=== PATIENT | female | born 1970 | race Caucasian/White ===

== ENCOUNTER 2017-12-15 07:32 | Observation (INO) | payer OTHER, SELFPAY ==
[2017-12-15 08:41] LABS: #Basophils 0.1 thou/uL (0.0-0.2); #Eosinphils 0.1 thou/uL (0.0-0.7); #Lymphocytes 0.9 thou/uL (1.20-3.40); #Monocytes 0.3 thou/uL (0.11-0.59); #Neutrophils 2.9 thou/uL (1.40-6.50); %Basophils 1.4 % (0.0-1.0); %Eosinophils 2.2 % (0.0-10.0); %Lymphocytes 21.6 % (21.0-51.0); %Monocytes 7.5 % (0.0-10.0); %Neutrophils 67.3 % (42.0-75.0); Hemoglobin 12.4 g/dL (12.0-16.0); Mean Corpuscular HGB CONC 32.3 g/dL (32.0-36.0); Mean Corpuscular Hemoglobin 35.6 pg (27.0-31.0); Mean Platelet Volume 7.2 fL (7.4-10.4); Platelet Count 174 thou/uL (130-400); RBC Distribution Width 13.2 % (11.5-14.5); Red Blood Cell (RBC) Count 3.49 mill/uL (4.20-5.40); White Blood Cell (WBC) Count 4.2 thou/uL (4.8-10.8)
[2017-12-15 08:48] LABS: Prothrombin Time 13.1 SEC (12.0-14.7)
[2017-12-15 09:00] LABS: ALT (SGPT) 69 U/L (8-55); AST (SGOT) 65 U/L (5-34); Albumin 4.3 g/dL (3.5-5.0); Alkaline Phosphatase 59 U/L (40-150); Anion Gap 17 mmol/L (10-20); BUN (Urea Nitrogen) 12 mg/dL (7.0-18.7); Bilirubin, Total 0.5 mg/dL (0.2-1.2); Calc. Creatinine Clearance 0 mL/min (70-130); Carbon Dioxide 24 mmol/L (22-29); Chloride 105 mmol/L (98-107); Estimated GFR-MDRD Greater than 90; Globulin 3.3 g/dL (2.4-3.5); Glucose 80 mg/dL (70-105); Magnesium 1.9 mg/dL (1.6-2.6); Potassium 3.7 mmol/L (3.5-5.1); Protein, Total 7.6 g/dL (6.0-8.3); Sodium 142 mmol/L (136-145)
[2017-12-15 09:04] LABS: CKMB 0.7 ng/mL (0-6.6)
--- NOTE | 2017-12-15 09:04 | CT ---
CT BRAIN NONCONTRAST: HISTORY: A 47-year-old female with posttraumatic headache. FINDINGS: There is no midline shift or any other mass effect. There is no evidence of acute intracranial hemor rhage, large cortical infarct, obstructive hydrocephalus, or extraaxial fluid collection. The calvar ium is intact. IMPRESSION: No acute intracranial findings. isabel [] POS: [facility]
[2017-12-15 09:15] LABS: MDiff Complete? YES; Macrocytosis SLIGHT = 6-15 cells (100X) (0-5/hpf)
--- NOTE | 2017-12-15 09:17 | CT ---
CT CERVICAL SPINE WITHOUT CONTRAST: HISTORY: Trauma. Fall. Injury. COMPARISON: None. FINDINGS: The occipital condyles are intact. The odontoid process is intact. Moderate to severe left-sided facet arthropathy at C4-C5 and moderate on the right at C4-C5. No acut e fracture or malalignment of the cervical spine. The thyroid is asymmetric with the right lobe smaller than the left. The paraspinal soft tissues are unremarkable. IMPRESSION: No acute fracture or malalignment of the cervical spine. POS: [facility]
--- NOTE | 2017-12-15 09:18 | RAD ---
PORTABLE AP CHEST: Date: 12/15/17 HISTORY: Patient hit head 2 weeks ago. Patient states she hit head Friday and now just woke up this morning. COMPARISON: 09/25/14. FINDINGS: Cardiac silhouette and pulmonary vasculature are within normal limits. The lungs remain clear. There is no interval change from prior study. IMPRESSION: No acute cardiopulmonary process. POS: [facility]
--- NOTE | 2017-12-15 09:18 | CT ---
CT MAXILLOFACIAL NONCONTRAST: HISTORY: Persistent, posttraumatic facial pain in a 47-year-old female. FINDINGS: There is no fracture. No dislocation of the TMJs. The orbits are clear. No large hematoma. IMPRESSION: Negative. POS: [facility]
[2017-12-15 09:33] LABS: Bilirubin Negative (Negative); Blood, Urine Negative (Negative); Glucose, Urine (Dipstick) Negative (Negative); Leukocyte Negative (Negative); Nitrite Negative (Negative); Protein, Urine (Dipstick) Negative (Neg-Trace); Specific Gravity, Urine 1.015 (1.005-1.030); pH, Urine 6.5 (5.0-9.0)
[2017-12-15 09:49] LABS: Clarity Hazy (Clear)
[2017-12-15] MEDS ORDERED: Acetaminophen 500 MG TAB ONE (12:13)
[2017-12-15] MEDS ORDERED: Metoclopramide HCl 10 MG/2 ML VIAL ONE (13:26)
[2017-12-15] MEDS ORDERED: diphenhydrAMINE 50 MG/ML VIAL ONE (13:26)
[2017-12-15] MEDS ORDERED: Gadobenate Dimeglumine 529 MG/1 ML (20ML VIAL) ONE (14:06)
[2017-12-15 16:13] LABS: Amphetamine Not Detected (NotDetected); Barbiturates Screen Not Detected (NotDetected); Benzodiazepine Screen Not Detected (NotDetected); Cocaine Metabolite Screen Not Detected (NotDetected); Medtox Reader # READER 1; Methadone Not Detected (NotDetected); Methamphetamine Not Detected (NotDetected); Opiate Screen Not Detected (NotDetected); Oxycodone Screen Not Detected (NotDetected); Phencyclidine (PCP) Not Detected (NotDetected); THC/Cannabinoid Screen Not Detected (NotDetected); Tricyclic Screen Not Detected (NotDetected)
[2017-12-15 16:14] LABS: Medtox Control Line Valid? VALID (VALID)
[2017-12-15] MEDS ORDERED: Acetaminophen 325 MG TAB PO PRN (17:12)
[2017-12-15] MEDS ORDERED: Ondansetron HCl/PF 4 MG/2 ML Vial IVP PRN ×2 (17:12→17:14)
[2017-12-15] MEDS ORDERED: Ondansetron ODT 4 MG TAB SL PRN (17:12)
[2017-12-15] MEDS ORDERED: Senokot 8.6 MG TAB PO PRN (17:14)
[2017-12-15] MEDS ORDERED: Calcium Carbonate 500 MG ChewTAB PO PRN (17:14)
[2017-12-15] MEDS ORDERED: Ondansetron ODT 4 MG TAB PO PRN (17:14)
[2017-12-15] MEDS ORDERED: Nitroglycerin 0.4 MG TAB (25 Tab Bottle) PO PRN (17:14)
[2017-12-15 17:25] VITALS: BMI 28.3
[2017-12-15] MEDS: Sodium Chloride 0.9% 1,000 ML IV SCH (17:41)
--- NOTE | 2017-12-15 19:08 | HP ---
DATE OF ADMISSION: 12/15/2017 PRIMARY CARE PHYSICIAN: Dr. Pimentel at [facility]. CHIEF COMPLAINT: Dizziness with persistent headache and unsteadiness of 10 days duration. HISTORY OF PRESENT ILLNESS: The patient is a 47-year-old female with anxiety, presented to the emerg ency room with above complaints. Approximately 10 days ago, the patient had a mechanical fall at home. She hit the back of her head a nd had some bleeding. She presented to the emergency room and discussed with the triage nurse and we nt home. No CT brain or other form of imaging were done. Since then she has not been feeling right. She has persistent headache along with some gait instability. Two days ago, the patient had difficulty finding her home. Next day, she woke up in the bathroom tub all dressed. The shower curtain was on her. She thinks she may have fallen when she was using the bathroom. She then crawled to the bed and went to sleep. This morning when she woke up, she continu ed to feel dizzy along with unsteadiness and persistent headache, which is right-sided, more or less constant, moderate in intensity, for which she presented to the emergency room. She denies any doubl e vision, blurring of vision, facial asymmetry, weakness, numbness of any of her extremities. No unruly st pain, palpitations, orthopnea, PND or leg swelling reported. She denies any previous cardiac issu es. In the emergency room, CT brain was negative for acute findings. Cervical spine CT, facial bone CT a nd chest x-ray were essentially negative. She received Reglan along with Benadryl and IV fluids in [facility] emergency room that helped with a headache. PAST MEDICAL HISTORY: 1. Anxiety. 2. ADHD. 3. History of alcohol abuse. 4. Depression. PAST SURGICAL HISTORY: 1. Breast augmentation. 2. Hysterectomy. 3. Surgery for urinary incontinence. 4. Knee arthroscopy in 2005. ALLERGIES: The patient denies any drug allergies. CURRENT HOME MEDICATIONS: Zoloft 100 mg daily. SOCIAL HISTORY: The patient currently lives at home alone. No smoking, alcohol or drug use. She krueger s a history of alcoholism in the past. FAMILY HISTORY: Negative for premature coronary artery disease. REVIEW OF SYSTEMS: The following complete review of systems was negative, unless otherwise mentioned in the HPI or below: Constitutional: Weight loss or gain, ability to conduct usual activities. Skin: Rash, itching. Eyes: Double vision, pain. ENT/Mouth: Nose bleeding, neck stiffness, pain, tenderness. Cardiovascular: Palpitations, dyspnea on exertion, orthopnea. Respiratory: Shortness of breath, wheezing, cough, hemoptysis, fever or night sweats. Gastrointestinal: Poor appetite, abdominal pain, heartburn, nausea, vomiting, constipation, or diarr hea. Genitourinary: Urgency, frequency, dysuria, nocturia. Musculoskeletal: Pain, swelling. Neurologic/Psychiatric: Anxiety, depression. Allergy/Immunologic: Skin rash, bleeding tendency. PHYSICAL EXAMINATION: VITAL SIGNS: Current vital signs show a temperature 98.5, pulse rate of 89, respiratory rate 18, blo od pressure 167/89 with O2 saturation 99% on room air. GENERAL: A 47-year-old female, anxious appearing, in no apparent distress. Complaining of right-lopez ed headache. HEENT: Head: Atraumatic, normocephalic. Sclerae are anicteric. Moist mucous membranes, no oral le joshua. NECK: Supple, no JVD, no carotid bruit. LUNGS: Clear to auscultation bilaterally. No wheezing, rales or rhonchi. HEART: S1, S2 present. Regular rate and rhythm. No murmurs, rubs or gallops appreciated. ABDOMEN: Soft, nontender, bowel sounds present. EXTREMITIES: No edema or calf tenderness. NEUROLOGIC: Grossly nonfocal, moves all four extremities. Power was 5/5 in all extremities. Finger -to-nose test was normal. Sensation to touch was normal bilaterally. Cranial nerves II through XII were normal on examination. PSYCHIATRIC: The patient is alert, awake, oriented x3, and anxious. SKIN: Warm and dry. LYMPH NODES: No palpable lymph nodes in the neck. PERIPHERAL VASCULAR: Radial pulses palpable bilaterally. MUSCULOSKELETAL: No joint swelling or tenderness. LABORATORY AND X-RAY FINDINGS: CBC showed WBC 4.2 with a hemoglobin 12.4, hematocrit 38.5, and plate let 174. PT of 13.1. AST of 65, ALT of 69, creatinine 0.6 with BUN 12, TSH was 6.6 with normal free T3 and free T4. Urinalysis was negative. Urine drug screen was negative. Chest x-ray by my review was negative for infiltrate. MRI of the brain has been done, official report pending at this time. EKG by my review showed sinus rhythm without significant ST-T wave changes. IMPRESSION: 1. Mechanical fall 10 days ago followed by residual symptoms including dizziness, unsteady gait and persistent right-sided headaches. Possibilities include post-concussion syndrome. We will rule out other intracranial pathology. 2. Syncope 2 days ago of unclear etiology. Rule out cardiac etiology. 3. Anxiety and depression. The patient denies any suicidal ideation. 4. History of alcohol abuse. 5. Abnormal TSH with normal free T3 and free T4. 6. Macrocytosis, rule out vitamin B12 and folic acid deficiency. 7. Abnormal liver function tests probably secondary to fatty liver versus history of alcoholism in t he past. 8. Attention deficit hyperactivity disorder. PLAN: The patient will be monitored on the telemetry unit. Carotid Doppler and echocardiogram will be done. MRI of the brain has been done, report pending at this time. We will continue Reglan as ne eded for headaches. Neurology will be consulted. We will continue telemetry monitoring. Gentle int ravenous hydration. Plan of care was discussed with the patient in detail and she stated understanding. Fall precautions emphasized. We will consult Physical Therapy.
--- NOTE | 2017-12-15 19:17 | MRI ---
MRI BRAIN WITH AND WITHOUT CONTRAST: Technique: Multiplanar, multisequential imaging of the brain obtained. Contrast images were obtained with administration of 15 cc of MultiHance IV. Internal auditory canal protocol was followed. History: Recurrent syncope, TIA. Comparison: CT brain 12-15-17. That exam showed no acute abnormality. FINDINGS: Ventricles have normal size and position. There is no evidence of restricted diffusion. No mass or edema. No evidence of white matter abnormali ty. The 7th and 8th cranial nerves are well seen on IC images. There is no abnormal enhancement seen at the cerebellar pontine angles or internal auditory canal regions. IMPRESSION: Unremarkable MRI of brain. POS: [facility]
[2017-12-15] MEDS: diphenhydrAMINE 50 MG/ML VIAL IVP PRN (19:36)
[2017-12-15] MEDS: Docusate 100 MG CAP PO SCH (19:37)
[2017-12-15] MEDS: Folic Acid 1 MG TAB PO SCH (19:37)
[2017-12-15] MEDS: Metoclopramide HCl 10 MG/2 ML VIAL IVP PRN (19:37)
[2017-12-15] MEDS: Famotidine 20 MG TAB PO SCH (19:38)
[2017-12-16] MEDS: Acetaminophen 325 MG TAB PO PRN ×4 (00:42→15:19)
[2017-12-16] MEDS: Sodium Chloride 0.9% 1,000 ML IV SCH (04:13)
--- NOTE | 2017-12-16 06:18 | CON ---
DATE OF CONSULTATION: 12/15/2017 REASON FOR CONSULTATION: Recurrent syncope. REFERRING PHYSICIAN: Norberto Cary MD HISTORY OF PRESENT ILLNESS: Ms. Aguirre is a pleasant 47-year-old female who has been esmer rned for evaluation of recurrent syncope. Patient reports that about 10 days ago she had gotten up a nd slipped on a wash cloth and fell straight on her back. Immediately she developed big scalp hemato ma on to the back of the head. She also had some pain in her lower back. After the fall, she was so mewhat shaken up, for the next few days, she was very shaky and somewhat dizzy and lightheaded. She also had headaches. She felt uneasy of driving and that she was working from home. She finally was able to leave her house and drive her car on Friday to run some errands. When she was trying to ge t back home, she had noted that she was just not able to find her way home. She had to use the [place] to find her way back. It took several hours to reach her home. She then woke up few hours later on the bathroom floor, all dressed up with curtain danish on her and not sure how long she was passed out f or. She was having difficulty with getting up, she had to crawl herself back to the bed and she slep t throughout the day on Friday, Friday, and she finally woke up on Friday, did not realizing that i t was already Friday, as she was having headache. She decided to present to the [facility] for further evaluation. She has no prior history of seizure disorder. She reports of having h eadache that is whole cranial and sharp and throbbing in quality. It is severe and 7-8/10 in intensi ty with photophobia, phonophobia. 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 PAST MEDICAL HISTORY: Significant for migraines, depression. PAST SURGICAL HISTORY: Significant for breast augmentation, hysterectomy, tubal ligation. SOCIAL HISTORY: She denies smoking cigarettes, drinking alcohol, or use illicit drugs. FAMILY HISTORY: Noncontributory. CURRENT MEDICATIONS: Include Zoloft 50 mg daily. ALLERGIES: No known drug allergies. REVIEW OF SYSTEMS: As mentioned in the HPI, otherwise negative. PHYSICAL EXAMINATION: VITAL SIGNS: Blood pressure 167/89, pulse of 89, temperature of 98.5, respirations of 18, O2 sats of 99% on room air. GENERAL: A well-developed, well-nourished female, in no apparent distress. RESPIRATORY: Clear to auscultation bilaterally. CARDIOVASCULAR: Regular rate and rhythm. NEUROLOGICAL: Mental status: The patient is awake, alert, oriented x3. Speech and language: Fluen t speech. Cranial nerves: Pupils are 3 mm and reactive. Visual ramirez are intact. Extraocular mus cles are intact. No nystagmus is noted. Face is symmetric. Tongue and uvula are midline. Motor ex am showed normal tone and bulk with a 5/5 strength in upper and lower extremities. Sensory: Sensati on is intact and symmetric. Deep tendon reflexes 2+ reflexes in both upper and lower extremities. B abinski: Plantar responses flexion bilaterally. Coordination intact to [id number] tapping b ilaterally. LABORATORY DATA: Reviewed, which included CBC, CMP, TSH, free T4, free T3, urinalysis, and urine arturo g screen, which is significant for WBC of 4.2, AST of 65, ALT of 69. TSH of 6.6063, otherwise unrema rkable. IMAGING STUDIES: MRI of brain without contrast was reviewed, which showed no acute intracranial abno rmality. Official radiology report is pending. Cervical spine CT and facial bone CT were reviewed, which showed no significant abnormality. IMPRESSION: 1. Post-concussion syndrome. 2. Post-concussion migraine headache. ASSESSMENT AND PLAN: Ms. Aguirre is a pleasant 47-year-old female who presented with recent fall followed by episodes of headache, dizziness, and confusion. At this time, based on the descrip tion of assistive symptoms. This is likely seizures postconcussion syndrome. She has also developed post-concussion migraine headaches. At this time, I have recommend obtaining EEG to rule out seizur es; if the EEG is normal, the patient can be discharged to home. I have informed the patient that he r symptoms are suggestive of post-concussion syndrome and the symptoms may last anywhere between 4 we eks to 3 months.
[2017-12-16 06:49] LABS: Folate (Folic Acid) 11.4 ng/mL (7.0-31.4)
[2017-12-16] MEDS ORDERED: Cyanocobalamin 1000 MCG/ML VIAL IM SCH (07:00)
--- NOTE | 2017-12-16 08:55 | ULT ---
BILATERAL CAROTID DUPLEX ULTRASOUND INCLUDING COLOR AND SPECTRAL DOPPLER IMAGING: History: 47-year-old female with TIA. FINDINGS: PSV right ICA 82 cm/sec, EDV 30 cm/sec, ICA/CCA ratio 0.8. PSV left ICA 48 cm/sec, EDV 21 cm/sec, ICA/CCA ratio of 0.4. Vertebral flow is antegrade. IMPRESSION: No hemodynamically significant stenosis. POS: [facility]
[2017-12-16] MEDS ORDERED: Aspirin 81 mg Enteric Coated Tablet PO SCH (09:00)
[2017-12-16] MEDS ORDERED: Aspirin 325 MG TAB PO SCH (09:00)
[2017-12-16] MEDS ORDERED: FLU VACC QS2017-18 36 mo. & older 0.5 ML SYRINGE IM ONE (09:00)
[2017-12-16] MEDS: Multivit, Therapeutic 1 TAB PO SCH (09:19)
[2017-12-16] MEDS: Cyanocobalamin (Vitamin B-12) 1,000 MCG TAB PO SCH (09:19)
[2017-12-16] MEDS: Docusate 100 MG CAP PO SCH ×2 (09:19→19:55)
[2017-12-16] MEDS: Famotidine 20 MG TAB PO SCH ×2 (09:19→19:55)
[2017-12-16] MEDS: diphenhydrAMINE 50 MG/ML VIAL IVP PRN ×3 (09:22→23:05)
[2017-12-16] MEDS: Metoclopramide HCl 10 MG/2 ML VIAL IVP PRN ×3 (11:19→23:05)
[2017-12-16] MEDS ORDERED: cloNIDine 0.1 MG TAB PO PRN (15:09)
[2017-12-16] MEDS ORDERED: ALPRAZolam 0.25 MG TAB PO PRN (15:09)
[2017-12-16] MEDS ORDERED: Amlodipine 5 MG TAB PO SCH (15:30)
[2017-12-16] MEDS ORDERED: Carvedilol 3.125 MG TAB PO SCH (18:00)
[2017-12-16] MEDS: Amlodipine 5 MG TAB PO SCH (19:54)
[2017-12-16] MEDS: Folic Acid 1 MG TAB PO SCH (19:55)
[2017-12-16] MEDS ORDERED: Acetaminophen 325 MG TAB PO PRN (20:08)
--- NOTE | 2017-12-16 21:24 | PDOC.PN ---
- Subjective Encounter Start Date: 12/16/17 Encounter Start Time: 18:00 Patient seen and examined. No new complaints. No overnight events - Objective Resuscitation Status: Resuscitation Status FULL:Full Resuscitation MAR Reviewed: Yes Vital Signs & Weight: Vital Signs (12 hours) Temp Pulse Pulse Pulse Resp BP BP 12/16/17 20:01 98.8 F 93 16 12/16/17 19:54 93 12/16/17 19:17 98.8 F 93 16 12/16/17 18:45 12/16/17 16:00 85 12/16/17 15:55 98.6 F 12/16/17 15:35 85 16 12/16/17 14:20 91 84 179/93 H 179/96 H 12/16/17 11:46 98.8 F 83 16 BP BP BP Pulse Ox 12/16/17 20:01 12/16/17 19:54 12/16/17 19:17 172/100 H 96 12/16/17 18:45 181/84 H 12/16/17 16:00 12/16/17 15:55 99 12/16/17 15:35 179/91 H 12/16/17 14:20 12/16/17 11:46 165/92 H 99 Weight Weight 175 lb 8 oz I&O: 12/15/17 12/16/17 12/17/17 06:59 06:59 06:59 Intake Total 1620 2090 Output Total 1050 2500 Balance 570 -410 Result Diagrams: 12/15/17 08:30 12/15/17 08:30 EKG Reviewed by me: Yes (Tele SR) Phys Exam - Physical Examination Constitutional: NAD Respiratory: no wheezing, no rhonchi Cardiovascular: RRR, no rub Gastrointestinal: soft, no distention Musculoskeletal: no edema Neurological: moves all 4 limbs Dx/Plan - Plan DVT proph w/SCDs IMPRESSION: 1. Mechanical fall 10 days ago followed by residual symptoms including dizziness, unsteady gait and persistent right-sided headaches - Post-concussion syndrome. MRI brain negative. 2. Syncope 2 days ago of unclear etiology. Carotid/Echo - negative 3. Anxiety and depression. The patient denies any suicidal ideation. 4. HTN - uncontrolled 5. Abnormal TSH with normal free T3 and free T4. Repeat after 2-3 months 6. Vitamin B12 deficiency. 7. Abnormal liver function tests probably secondary to fatty liver versus history of alcoholism in the past. 8. Attention deficit hyperactivity disorder. PLAN: * BP uncontrolled - Has not been on any meds for years - Will try Coreg +/- Amlodipine * DC later today if SBP <160 * Cont Reglan PRN * Neuro input appreciated * Replace Vit B12 * DC Aspirin Review of Systems - Review of Systems Respiratory: negative: Cough, Dry, Shortness of Breath, Hemoptysis, SOB with Excertion, Pleuritic Pain, Sputum, Wheezing Cardiovascular: negative: chest pain, palpitations, orthopnea, paroxysmal nocturnal dyspnea, edema, light headedness - Medications/Allergies Allergies/Adverse Reactions: Allergies Allergy/AdvReac Type Severity Reaction Status Date / Time No Known Drug Allergies Allergy Verified 12/15/17 17:48 Medications: Current Medications Acetaminophen (Tylenol) 650 mg PO Q4H PRN PRN Reason: Headache/Fever or Pain Last Admin: 12/16/17 20:15 Dose: 650 mg Alprazolam (Xanax) 0.25 mg PO BIDPRN PRN PRN Reason: Anxiety Amlodipine Besylate (Norvasc) 2.5 mg PO BID [facility] Last Admin: 12/16/17 19:54 Dose: 2.5 mg Aspirin (Ecotrin) 81 mg PO DAILY [facility] Last Admin: 12/16/17 09:19 Dose: 81 mg Calcium Carbonate (Tums) 1,000 mg PO Q4H PRN PRN Reason: Heartburn or Indigestion Carvedilol (Coreg) 3.125 mg PO BID[facility] Clonidine (Catapres) 0.1 mg PO Q4H PRN PRN Reason: Systolic BP > 180 Cyanocobalamin (Vitamin B-12) 1,000 mcg PO DAILY [facility] Last Admin: 12/16/17 09:19 Dose: 1,000 mcg Cyanocobalamin (Vitamin B-12) 1,000 mcg IM ONE [facility] Stop: 12/17/17 10:00 Last Admin: 12/16/17 09:20 Dose: 1,000 mcg Diphenhydramine HCl (Benadryl) 25 mg IVP Q6H PRN PRN Reason: Migraine Last Admin: 12/16/17 17:03 Dose: 25 mg Docusate Sodium (Colace) 100 mg PO BID [facility] Last Admin: 12/16/17 19:55 Dose: Not Given Famotidine (Pepcid) 20 mg PO BID [facility] Last Admin: 12/16/17 19:55 Dose: Not Given Folic Acid (Folvite) 1 mg PO [facility] Last Admin: 12/16/17 19:55 Dose: 1 mg Metoclopramide HCl (Reglan) 5 mg IVP Q6H PRN PRN Reason: Nausea/Vomiting/Headache Last Admin: 12/16/17 17:01 Dose: 5 mg Multivitamins (Theragran) 1 tab PO DAILY [facility] Last Admin: 12/16/17 09:19 Dose: 1 tab Nitroglycerin (Nitrostat) 0.4 mg PO Q5MIN PRN PRN Reason: Chest Pain Ondansetron HCl (Zofran Odt) 4 mg PO Q6H PRN PRN Reason: Nausea/Vomiting Ondansetron HCl (Zofran) 4 mg IVP Q6H PRN PRN Reason: Nausea/Vomiting Senna (Senokot) 2 tab PO HSPRN PRN PRN Reason: Constipation Sertraline HCl (Zoloft) 100 mg PO DAILY [facility] Last Admin: 12/16/17 09:19 Dose: 100 mg Thiamine HCl (Thiamine) 100 mg PO [facility] Last Admin: 12/16/17 19:56 Dose: 100 mg
[2017-12-17] MEDS: Metoclopramide HCl 10 MG/2 ML VIAL IVP PRN (05:54)
[2017-12-17] MEDS: diphenhydrAMINE 50 MG/ML VIAL IVP PRN (05:55)
[2017-12-17 07:54] VITALS: TEMP 98.3
[2017-12-17] MEDS ORDERED: Carvedilol 3.125 MG TAB PO SCH (08:00)
[2017-12-17] MEDS: Amlodipine 5 MG TAB PO SCH (08:34)
[2017-12-17] MEDS: Cyanocobalamin (Vitamin B-12) 1,000 MCG TAB PO SCH (08:35)
[2017-12-17] MEDS: Multivit, Therapeutic 1 TAB PO SCH (08:35)
[2017-12-17] MEDS: Docusate 100 MG CAP PO SCH (08:36)
[2017-12-17] MEDS ORDERED: Amlodipine 5 MG TAB PO SCH (09:00)
[2017-12-17 09:08] VITALS: BP 143/90
--- NOTE | 2017-12-17 14:37 | DIS ---
DATE OF ADMISSION: 12/15/2017 DATE OF DISCHARGE: 12/17/2017 DISCHARGE DIAGNOSES: 1. Mechanical fall. 2. Postconcussion syndrome. 3. Syncope. 4. Anxiety. 5. Depression. 6. Essential hypertension. 7. Probable history of past alcoholism. 8. Vitamin B12 deficiency. 9. Attention deficit disorder. CONSULTATIONS: Neurology, Dr. Corrie Siddiqui, on 12/15/2017. PROCEDURES: 1. Echocardiogram, 12/15/2017, showed EF of 55%-60%, mild MR and TR. 2. MRI of the brain. HOSPITAL COURSE: Ms. Aguirre is a 47-year-old female, who was admitted on 12/15/2017 after presented to the emergency department. She presented for dizziness and persistent headache for 10 days. On , she had a fall, hitting the back of her head with some external bleeding. At that time, she w as seen by the emergency room, discussed, and went home. She did not stay for a CT scan. Since that day, she has not been feeling right and woke up the day of admission in the bath tub with the shower curtain over her and still dressed. She was in the emergency department for evaluation where CT sca ns were negative. We were called for admission. The patient was seen and examined by Dr. Cary and placed on observation. MRI was ordered that was u earl. Carotid Doppler study was done that was unremarkable. She was watched on telemetry and had echocardiogram done that were unremarkable, and was stable for discharge on 12/16/2017. However , afternoon blood pressures were elevated, her blood pressures were adjusted, and she was watched ove rnight. Today, after blood pressure medicines, her blood pressure was 143/90. She is stable for discharge [facility] outpatient followup. PHYSICAL EXAMINATION: The patient was seen and examined on the day of discharge. DISCHARGE PLAN AND DISPOSITION: Discussed with patient [id number] at the bedside. DISCHARGE MEDICATIONS: 1. Zoloft 100 mg p.o. daily. 2. Carvedilol 3.125 mg p.o. b.i.d. 3. Norvasc 2.5 mg p.o. b.i.d. DISCHARGE CONDITION: Stable. DISPOSITION: Will be discharged home via private vehicle. DISCHARGE ACTIVITY: As tolerated. DISCHARGE DIET: Heart healthy recommended. FOLLOWUP APPOINTMENTS: Primary care physician within a week.
== END 2017-12-17 09:43 | disposition home or self-care (01) ==
LOC: ERS 07:32 → 2SW 15:25
PROVIDERS: ADMIT Internal Medicine; ATTEND Internal Medicine
DX: R55 Syncope and collapse (principal); F07.81 Postconcussional syndrome; F41.9 Anxiety disorder, unspecified; F32.9 Major depressive disorder, single episode, unspecified; F98.8 Other specified behavioral and emotional disorders with onset usually occurring in childhood and adolescence; F10.10 Alcohol abuse, uncomplicated; I10 Essential (primary) hypertension; E53.8 Deficiency of other specified B group vitamins; G43.909 Migraine, unspecified, not intractable, without status migrainosus; R94.5 Abnormal results of liver function studies; Z79.899 Other long term (current) drug therapy; Z90.710 Acquired absence of both cervix and uterus; Z98.890 Other specified postprocedural states; Z91.81 History of falling
CPT/HCPCS: 36415; 36416; 70450; 70486; 70553; 71045; 72125; 80053; 80306; 81003; 82553; 82607; 82746; 83735; 84439; 84443; 84481; 84484; 85025; 85610; 90471; 90682; 93005; 93306; 93880; 95816; 95819; 96361; 96365; 96372; 96375; 96376; A9579; G0008; G0378; G8978-GP-CJ; G8979-GP-CJ; G8980-GP-CJ; G8987-GO-CI; G8988-GO-CI; G8989-GO-CI; J1200; J2765; J3420; Q2036